=== PATIENT | female | born 1955 | race Caucasian/White ===

== ENCOUNTER 2018-11-08 07:59 | Day surgery (SDC) | payer MEDICARE, OTHER ==
[2018-11-08] MEDS ORDERED: LIDOCAINE 2% (SDV) 5 ML INJ (09:40)
[2018-11-08] MEDS ORDERED: PROPOFOL 40 ML (09:40)
== END 2018-11-08 11:48 | disposition home or self-care (01) ==
LOC: GIL 07:59
DX: R19.4 Change in bowel habit (principal); D12.5 Benign neoplasm of sigmoid colon; K64.8 Other hemorrhoids; E11.9 Type 2 diabetes mellitus without complications; I10 Essential (primary) hypertension
CPT/HCPCS: 45380; 82962; 88305